=== PATIENT | male | born 1990 | race Hispanic/Latino ===

== ENCOUNTER 2019-04-13 11:48 | Outpatient (CLI) | payer MEDICARE, BC, MEDICAID ==
[2019-04-13 12:29] LABS: Basophils # (Auto) 0.1 K/mm3 (0.0-0.1); Basophils % (Auto) 1.7 % (0.0-1.8); Eosinophils # (Auto) 0.2 K/mm3 (0.0-0.4); Eosinophils % (Auto) 2.6 % (0.0-4.3); Hematocrit 45.2 % (35.5-45.6); Hemoglobin 15.5 gm/dl (11.8-15.2); Lymphocytes # (Auto) 1.6 K/mm3 (1.2-5.4); Mean Corpuscular HGB Conc 34 % (32-34); Mean Corpuscular Volume 93 fl (84-94); Monocytes # (Auto) 0.4 K/mm3 (0.0-0.8); Monocytes % (Auto) 5.9 % (0.0-7.3); Platelet Count 215 K/mm3 (140-440); Red Blood Count 4.84 M/mm3 (3.65-5.03); Red Cell Distribution Width 12.8 % (13.2-15.2)
[2019-04-13 12:53] LABS: Alanine Aminotransferase 14 units/L (7-56); BUN/Creatinine Ratio 20; Blood Urea Nitrogen 10 mg/dL (9-20); Calcium 9.4 mg/dL (8.4-10.2); Hemolysis Index 6
== END 2019-04-13 11:49 | disposition home or self-care (01) ==
LOC: LAB 11:48
PROVIDERS: ATTEND Psychiatry & Neurology Neurology
DX: D64.9 Anemia, unspecified (principal)
CPT/HCPCS: 36415; 80048; 84450; 84460; 85025